=== PATIENT | female | born 1995 | race Caucasian/White ===

== ENCOUNTER 2018-09-02 18:21 | Emergency (ER) | payer MEDICAID ==
[~2018-09-02] VITALS: Ht 157.5 cm; Wt 77.5 kg
[2018-09-02 18:23] VITALS: BP 125/86
[2018-09-02] MEDS ORDERED: CEFTRIAXONE 250 MG IM ONE (18:30)
[2018-09-02] MEDS ORDERED: AZITHROMYCIN 250 MG TABLET PO ONE (18:30)
[2018-09-02 18:53] LABS: MICROSCOPIC AUTO
[2018-09-02 18:54] LABS: CULTURE INDICATED? YES
--- NOTE | 2018-09-02 19:32 | NUR ---
pt to room from lobby
[2018-09-02] MEDS ORDERED: CEFTRIAXONE 250 MG ONE (19:49)
[2018-09-02] MEDS ORDERED: AZITHROMYCIN 250 MG TABLET ONE (19:50)
[2018-09-02 20:03] LABS: HCG UR SG 1.028 (1.003-1.030)
[2018-09-02 20:27] LABS: CLUE CELLS NONE SEEN (NONE SEEN); WET PREP WBCS MODERATE (FEW)
--- NOTE | 2018-09-02 20:34 | NUR ---
PTS CHART UP FOR RECHECK
--- NOTE | 2018-09-02 21:20 | NUR ---
Patient/Caregiver given discharge instructions and they have confirmed that they understand the instructions. Patient ambulatory with steady gait.
== END 2018-09-02 21:21 | disposition home or self-care (01) ==
LOC: ED 20:44
DX: N30.00 Acute cystitis without hematuria (principal); N89.8 Other specified noninflammatory disorders of vagina; G40.909 Epilepsy, unspecified, not intractable, without status epilepticus
CPT/HCPCS: 81001; 81025; 87086; 87210; 87491; 87591; 87808; 96372; 99283; J0696